=== PATIENT | male | born 1955 | race Caucasian/White ===

== ENCOUNTER 2018-07-23 07:13 | Day surgery (SDC) | payer BC ==
[~2018-07-23 07:13] MED LIST: Lactated Ringers 1,000 ML IV SCH; Sodium Chloride 0.9% 10 ML Syringe FLUSH PRN; Sodium Chloride 0.9% 2.5 ML Syringe FLUSH PRN
[2018-07-23] MEDS ORDERED: Propofol 200 MG/20 ML SDV ONE (07:34)
[2018-07-23] MEDS ORDERED: fentaNYL 100 MCG/2 ML SDV ONE (07:34)
[2018-07-23] MEDS ORDERED: Lidocaine 2% 5 ML SDV ONE (07:34)
--- NOTE | 2018-07-23 08:19 | PCM.PREANE ---
Preanesthetic Assessment - Anesthesia/Transfusion/Family Hx Anesthesia History: Prior Anesthesia Without Reaction Family History of Anesthesia Reaction: No Transfusion History: No Prior Transfusion(s) - Review of Systems General: No Symptoms Pulmonary: No Symptoms Cardiovascular: No Symptoms Neurological: No Symptoms Other: Reports: None - Physical Assessment NPO Status Date: 07/22/18 O2 Sat by Pulse Oximetry: 94 Respiratory Rate: 16 Vital Signs: Last Vital Signs Temp 97.0 F 07/23/18 07:30 Pulse 100 07/23/18 07:30 Resp 16 07/23/18 07:30 BP 124/86 07/23/18 07:30 Pulse Ox 94 L 07/23/18 07:30 Height: 5 ft 10 in Weight: 119.295 kg ASA Class: 2 Mental Status: Alert & Oriented x3 Airway Class: Mallampati = 1 Dentition: Reports: Normal Dentition ROM/Head Extension: Full Lungs: Clear to Auscultation, Normal Respiratory Effort Cardiovascular: Regular Rate, Regular Rhythm - Allergies Allergies/Adverse Reactions: Allergies Allergy/AdvReac Type Severity Reaction Status Date / Time No Known Allergies Allergy Verified 07/20/18 07:52 - Blood Blood Available: No - Anesthesia Plan Pre-Op Medication Ordered: None - Acknowledgements Anesthesia Type Planned: MAC Pt an Appropriate Candidate for the Planned Anesthesia: Yes Alternatives and Risks of Anesthesia Discussed w Pt/Guardian: Yes Pt/Guardian Understands and Agrees with Anesthesia Plan: Yes Additional Comments: PMH: COPD, htn, hld, pre-diabetes PLAN: MAC/TIVA PreAnesthesia Questionnaire HEENT History: Reports: Other (See Below) Other HEENT History: wears glasses Cardiovascular History: Reports: High Cholesterol, Hypertension Respiratory History: Reports: Asthma Gastrointestinal History: Reports: GERD Musculoskeletal History: Reports: None Neurological History: Reports: Other (See Below) Other Neuro History: head injury in the past Endocrine/Metabolic History: Reports: Obesity/BMI 30+ Other Endocrine/Metabolic History: "prediabetic" - Past Surgical History Head Surgeries/Procedures: Reports: None HEENT Surgical History: Reports: Eye Surgery GI Surgical History: Reports: Appendectomy, Colonoscopy, EGD, Hernia, Inguinal Other GI Surgeries/Procedures: hx of garima inguinal hernia repair, Musculoskeletal Surgical History: Reports: Arthroscopic Knee - SUBSTANCE USE Smoking Status *Q: Former Smoker Recreational Drug Use History: No - HOME MEDS Home Medications: Home Meds Lisinopril 10 mg PO DAILY 04/02/15 [History] Pantoprazole [ProTONIX Granules] 40 mg PO DAILY 04/02/15 [History] Simvastatin [Zocor] 20 mg PO BEDTIME 04/02/15 [History] Fluticasone/Vilanterol [Breo Ellipta 100-25 MCG Inhalation Kit] 1 inhalation INH DAILY 07/20/18 [History] Sildenafil Citrate [Sildenafil] 50 - 100 mg PO ASDIRECTED PRN 07/20/18 [History] metFORMIN HCl [Metformin HCl] 2 tab PO DAILY 07/20/18 [History] - CURRENT (IN HOUSE) MEDS Current Meds: Current Medications Lactated Ringer's (Ringers, Lactated) 1,000 mls @ 125 mls/hr IV ASDIRECTED FER Last Admin: 07/23/18 07:54 Dose: 125 mls/hr Sodium Chloride (Saline Flush) 10 ml FLUSH ASDIRECTED PRN PRN Reason: Keep Vein Open Sodium Chloride (Saline Flush) 2.5 ml FLUSH ASDIRECTED PRN PRN Reason: Keep Vein Open Sodium Chloride (Saline Flush) 10 ml FLUSH ASDIRECTED PRN PRN Reason: Keep Vein Open Sodium Chloride (Saline Flush) 2.5 ml FLUSH ASDIRECTED PRN PRN Reason: Keep Vein Open Discontinued Medications Fentanyl (Sublimaze) Confirm Administered Dose 100 mcg .ROUTE .STK-MED ONE Stop: 07/23/18 07:35 Lidocaine (Xylocaine-Mpf 2%) Confirm Administered Dose 5 ml .ROUTE .STK-MED ONE Stop: 07/23/18 07:35 Propofol (Diprivan 20 Ml) Confirm Administered Dose 400 mg .ROUTE .STK-MED ONE Stop: 07/23/18 07:35
--- NOTE | 2018-07-23 09:21 | PCM.OPNOTE ---
- General Post-Op/Procedure Note Date of Surgery/Procedure: 07/23/18 Operative Procedure(s): Diagnostic EGD and colonoscopy Findings: Moderate sized hiatal hernia, hyperplastic gastric polyps, cecal polyp, diverticulosis, hemorrhoids Pre Op Diagnosis: Change in bowel habits, heartburn Post-Op Diagnosis: Moderate sized hiatal hernia, hyperplastic gastric polyps, cecal polyp, diverticulosis, hemorrhoids Anesthesia Technique: MAC Primary Surgeon: Cierra Shaw Condition: Good
--- NOTE | 2018-07-23 09:31 | PCM.POSTAN ---
POST ANESTHESIA ASSESSMENT - MENTAL STATUS Mental Status: Alert, Oriented - RESPIRATORY Respiratory Status: Respiratory Rate WNL, Airway Patent, O2 Saturation Stable - CARDIOVASCULAR CV Status: Pulse Rate WNL, Blood Pressure Stable - GASTROINTESTINAL GI Status: No Symptoms - POST OP HYDRATION Hydration Status: Adequate & Stable
--- NOTE | 2018-07-23 09:31 | PCM48HPAN ---
Post Anesthesia Note - EVALUATION WITHIN 48HRS OF ANESTHETIC Vital Signs in Normal Range: Yes Patient Participated in Evaluation: Yes Respiratory Function Stable: Yes Airway Patent: Yes Cardiovascular Function Stable: Yes Hydration Status Stable: Yes Pain Control Satisfactory: Yes Nausea and Vomiting Control Satisfactory: Yes Mental Status Recovered: Yes Resp Rate: 16
[2018-07-23 09:57] VITALS: BP 139/77
--- NOTE | 2018-07-23 14:27 | OR ---
SURGEON: CHARLES ACOSTA MD DATE OF PROCEDURE: 07/23/2018 PREOPERATIVE DIAGNOSES: Refractory heartburn, change in bowel habits, history of colon polyps. POSTOPERATIVE DIAGNOSES: 1. Hiatal hernia. 2. Hyperplastic gastric polyps. 3. Cecal polyp. 4. Diverticulosis. 5. Hemorrhoids. PROCEDURE PERFORMED: Diagnostic EGD and colonoscopy. ANESTHESIA: MAC. INSTRUMENT USED: Olympus endoscope and colonoscope. EXTENT OF EXAM: To the second portion of duodenum, to the cecum. PREPARATION: Good. LIMITATIONS: None. INDICATION FOR EXAMINATION: The patient is a 62-year-old male who presents with a history of heartburn, as well as a change in his bowel habits. He is currently on PPI therapy which controls the majority of his symptoms, but he still gets a breakthrough at night. He has had a recent change in his bowel habits and has a history of colon polyps. I explained the need for diagnostic EGD and colonoscopy. I explained the procedures, expected perioperative course, and risks including bleeding, infection, or damage to the surrounding structures. The patient verbalized the understanding and wishes to proceed. PROCEDURE IN DETAIL: The patient was brought into the endoscopy suite and placed in the left lateral decubitus position. A time-out was completed verifying the patient's name, age, date of , allergies, and procedure to be performed. A bite block was placed in the patient's mouth. Monitored anesthesia care was induced and continuous oxygen was provided via nasal cannula throughout the procedure. After adequate sedation was achieved, a well lubricated endoscope was placed in the patient's mouth and advanced under direct visualization to the second portion of duodenum. This appeared normal and a photograph was taken. The scope was then straightened out and fully withdrawn while examining the color, texture, anatomy, and integrity of the mucosa of the upper GI tract. The duodenal mucosa appeared normal. The scope was then brought into the stomach and a photograph was taken of the GE junction as well as the pylorus. The patient was noted to have a moderate-sized hiatal hernia. Biopsies were taken of the gastric antrum, body, and fundus and sent for histologic review and H. pylori testing. There was no evidence of gross inflammation or ulceration, but along the body of the stomach, the patient was noted to have hyperplastic- appearing gastric polyps. A biopsy of one of these was taken and sent to Pathology. The scope was then brought into the proximal stomach, which appeared to be in the chest. A photograph of this was taken. The scope was then brought up above the GE junction. The esophagus was mildly tortuous, but the distal esophageal mucosa showed no evidence of severe inflammation or ulceration. A biopsy was taken of the esophageal mucosa above the GE junction. The remainder of the esophageal mucosa was normal. The scope was removed and this portion of procedure terminated. A digital rectal exam was performed. This exam was within normal limits. A well lubricated colonoscope was inserted into the rectum and advanced under direct visualization to the level of the cecum. The cecum was identified by both visual and anatomic landmarks. A photograph was taken of the cecal cap; however, I was unable to retroflex the scope within the cecum due to looping of the scope more proximally. The patient was found to have diverticulosis in the cecum and there were two small adjacent polyps in the cecal cap. These were biopsied together and sent to Pathology, labeled as cecal polyp. The remainder of the colon appeared normal. The scope was brought into the rectum and retroflexed to allow visualization of the anal canal opening. The patient was found to have some mildly enlarged hemorrhoids. A photograph of this was taken. The scope was then straightened out and fully withdrawn. The cecum to anus time was 15 minutes. The patient tolerated the procedure well and was taken to PACU in stable condition. ENDOSCOPIC DIAGNOSES: 1. Hiatal hernia. 2. Hyperplastic gastric polyps. 3. Cecal polyp. 4. Diverticulosis. 5. Hemorrhoids. RECOMMENDATIONS: Follow up in clinic in 2 weeks. SABRINA BEARD /[id number] MAL
== END 2018-07-23 10:00 | disposition home or self-care (01) ==
LOC: MW.SDS 07:13
PROVIDERS: ATTEND Surgery
DX: R19.4 Change in bowel habit (principal); K63.5 Polyp of colon; K57.30 Diverticulosis of large intestine without perforation or abscess without bleeding; K64.9 Unspecified hemorrhoids; K31.7 Polyp of stomach and duodenum; K22.70 Barrett's esophagus without dysplasia; K44.9 Diaphragmatic hernia without obstruction or gangrene; K21.9 Gastro-esophageal reflux disease without esophagitis; I10 Essential (primary) hypertension; E78.00 Pure hypercholesterolemia, unspecified; R73.03 Prediabetes; J44.9 Chronic obstructive pulmonary disease, unspecified; E66.9 Obesity, unspecified; Z68.37 Body mass index [BMI] 37.0-37.9, adult; Z86.010 Personal history of colon polyps; Z87.891 Personal history of nicotine dependence; Z79.84 Long term (current) use of oral hypoglycemic drugs; Z79.899 Other long term (current) drug therapy
CPT/HCPCS: 43239; 45380; J2704; J3010; J7120; 88305; 88312